=== PATIENT | male | born 1945 | race Caucasian/White ===

== ENCOUNTER 2020-12-11 15:37 | Inpatient (IN) ==
[2020-12-13] MEDS ORDERED: *HR* Dextrose 50 % in Water (Vial) 50 ML VIAL IVP PRN (14:13)
[2020-12-13] MEDS ORDERED: D5% in Water 1,000 ML IVC PRN (14:13)
[2020-12-13] MEDS ORDERED: Dextrose Gel 15 GM/37.5 ML TUBE PO PRN ×2 (14:13)
[2020-12-13] MEDS: Insulin LISPRO 300 UNITS/3 ML VIAL SUBQ SCH ×2 (17:33→21:09)
[2020-12-13] MEDS: (Netarsudil Mesylate [Rhopressa] 2.5 ML Drops) OP SCH (18:41)
[2020-12-13] MEDS: carvediloL 25 MG TABLET PO SCH (21:12)
[2020-12-14 05:49] LABS: Basophils % 0.2 %; Eosinophils # 0.1 K/mcL (0.0-0.6); Eosinophils % 1.1 %; Hematocrit 33.7 % (37.5-50.1); Hemoglobin 11.8 g/dL (12.9-16.9); Lymphocytes % 15.1 %; Mean Corpuscular Hemoglobin 39.1 pg (28.0-33.3); Mean Corpuscular Volume 111.6 fL (83.0-100.0); Mean Platelet Volume 9.8 fL (9.4-12.4); Monocytes # 0.6 K/mcL (0.0-1.3); Monocytes % 8.9 %; Neutrophils # 4.7 K/mcL (1.6-8.9); Platelet Count 295 K/mcL (140-400); Red Blood Count 3.02 M/mcL (4.19-5.50); Red Cell Distribution Width 11.8 % (11.5-14.5); Segmented Neutrophils % 72.7 %; White Blood Count 6.5 K/mcL (4.3-11.1)
[2020-12-14 05:59] LABS: Macrocytosis Present (Not Present); Platelet Estimate Normal (Normal)
[2020-12-14 06:06] LABS: BUN/Creatinine Ratio 29 (6-26); Blood Urea Nitrogen 52 mg/dL (8-23); Calcium 9.5 mg/dL (8.6-10.3); Carbon Dioxide 26 mEq/L (23-29); Chloride 109 mEq/L (98-107); Glucose 137 mg/dL (70-105); Osmolality,Calculated 306 (280-300); Potassium 4.3 mEq/L (3.5-5.1); Sodium 140 mEq/L (136-145); eGFR For African Americans 46 (> 60); eGFR For Non-African Americans 38 (> 60)
[2020-12-14] MEDS: calcitrioL 0.25 MCG CAPSULE PO SCH (08:23)
[2020-12-14] MEDS: Hydroxyurea 500 MG CAPSULE PO SCH (08:23)
[2020-12-14] MEDS: carvediloL 25 MG TABLET PO SCH ×2 (08:23→20:46)
[2020-12-14] MEDS: Cholecalciferol (D-3) 1,000 UNIT (25MCG) TABLET PO SCH (08:23)
[2020-12-14] MEDS: NIFEdipine XL (24 HR) 60 MG TAB.ER.24 PO SCH (08:23)
[2020-12-14] MEDS: Insulin LISPRO 300 UNITS/3 ML VIAL SUBQ SCH ×4 (08:24→20:47)
[2020-12-14] MEDS: Insulin DETEMIR 100 UNIT/ML X5UNITS SUBQ SCH ×2 (08:24→20:46)
[2020-12-14 11:48] LABS: C-Reactive Protein < 5 mg/L (Less than 10)
[2020-12-14] MEDS: (Netarsudil Mesylate [Rhopressa] 2.5 ML Drops) OP SCH (17:11)
[2020-12-15] MEDS: Cholecalciferol (D-3) 1,000 UNIT (25MCG) TABLET PO SCH (09:10)
[2020-12-15] MEDS: Hydroxyurea 500 MG CAPSULE PO SCH (09:11)
[2020-12-15] MEDS: NIFEdipine XL (24 HR) 60 MG TAB.ER.24 PO SCH (09:11)
[2020-12-15] MEDS: carvediloL 25 MG TABLET PO SCH ×2 (09:11→21:47)
[2020-12-15] MEDS: calcitrioL 0.25 MCG CAPSULE PO SCH (09:11)
[2020-12-15] MEDS: Insulin DETEMIR 100 UNIT/ML X5UNITS SUBQ SCH ×2 (09:13→21:48)
[2020-12-15] MEDS: Insulin LISPRO 300 UNITS/3 ML VIAL SUBQ SCH ×4 (09:16→21:48)
[2020-12-15] MEDS: (Netarsudil Mesylate [Rhopressa] 2.5 ML Drops) OP SCH (16:27)
[2020-12-16 07:10] VITALS: BP 144/71
[2020-12-16] MEDS: Insulin LISPRO 300 UNITS/3 ML VIAL SUBQ SCH (09:03)
[2020-12-16] MEDS: calcitrioL 0.25 MCG CAPSULE PO SCH (10:02)
[2020-12-16] MEDS: Cholecalciferol (D-3) 1,000 UNIT (25MCG) TABLET PO SCH (10:02)
[2020-12-16] MEDS: Hydroxyurea 500 MG CAPSULE PO SCH (10:02)
[2020-12-16] MEDS: Insulin DETEMIR 100 UNIT/ML X5UNITS SUBQ SCH (10:02)
[2020-12-16] MEDS: NIFEdipine XL (24 HR) 60 MG TAB.ER.24 PO SCH (10:02)
[2020-12-16] MEDS: carvediloL 25 MG TABLET PO SCH (10:02)
[2020-12-16] MEDS ORDERED: FLU Vac QV 20-21 (6Month+)/PF 0.5 ML SYRINGE IM ONE (14:16)
== END 2020-12-16 14:42 | disposition home or self-care (01) | DRG 177 ==
LOC: INPGRE 12-13 17:21
PROVIDERS: ADMIT Family Medicine; ATTEND Family Medicine